=== PATIENT | male | born 1965 | race Caucasian/White ===

== ENCOUNTER → 2018-01-16 15:01 | Outpatient (CLI) | payer MEDICAID, SELFPAY ==
[2018-01-16 17:35] LABS: Absolute Lymphocyte Count 1.66 X10^3/ul (0.83-4.51); Absolute Neutrophil Count 3.2 X10^3/uL (2.0-7.7); Basophil# 0.01 X10^3/uL; Basophil% 0.2 % (0-1); Eosinophil# 0.01 X10^3/uL; Eosinophils% 0.2 % (0-5); Hematocrit 42.1 % (40-54); Hemoglobin 14.9 g/dl (13.0-16.5); Lymphocyte # 1.66 X10^3/ul (4.0); Lymphocyte % 31.6 % (19-41); Mean Corp Hgb Conc 35.4 g/gl (32-36); Mean Corpuscular Hgb 32.5 pg (27.0-32.0); Mean Corpuscular Volume 91.7 fL (80-94); Monocyte% 7.6 % (0-10); Neutrophil # 3.16 X10^3/uL (2.7-7.7); Neutrophil % 60.2 % (47-70); Platelet Count 141 K/mm3 (150-450); RBC Distribution Width CV 12.8 % (11.6-14.6); RBC Distribution Width SD 42.4 fl (35.1-43.9); Red Blood Count 4.59 M/mm3 (4.6-6.2); White Blood Count 5.3 K/mm3 (4.4-11.0)
[2018-01-16 17:37] LABS: POSITIVE COUNT NO; POSITIVE DIFFERENTIAL NO; POSITIVE MORPHOLOGY NO
[2018-01-16 17:41] LABS: Magnesium 1.8 mg/dL (1.6-2.6); Uric Acid 5.8 mg/dL (3.5-7.2)
[2018-01-16 17:59] LABS: Erythrocyte Sedimentation Rate 14 mm/hr (0-20)
[2018-01-18 15:41] LABS: ANTINUCLEAR ANTIBODIES DIRECT Negative (Negative)
[2018-01-18 16:09] LABS: PROEL- A/G Ratio 1.2 (0.7-1.7); PROEL- Albumin 3.6 g/dL (2.9-4.4); PROEL- Alpha-1 Globulin 0.2 g/dL (0.0-0.4); PROEL- Alpha-2 Globulin 0.9 g/dL (0.4-1.0); PROEL- Beta Globulin 0.9 g/dL (0.7-1.3); PROEL- Gamma Globulin 0.9 g/dL (0.4-1.8); PROEL- TOTAL PROTEIN 6.6 g/dL (6.0-8.5)
== END ==
PROVIDERS: Family Provider Family Medicine; PCP Family Medicine; Visit Provider Family Medicine
DX: M06.4 Inflammatory polyarthropathy (principal); M77.8 Other enthesopathies, not elsewhere classified
CPT/HCPCS: 36415; 83735; 84165; 84550; 85025; 85652; 86038; 86140; 86431; 97166

== ENCOUNTER 2018-01-31 09:30 | Outpatient (RCR) | payer MEDICAID, SELFPAY ==
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
--- NOTE | 2018-01-31 10:02 | HP.OTDCSUM ---
HP - OT D/C Summary It has been my pleasure to treat ARRON LARSEN under orders from Chelsea Ma DO, for the diagnosis of right dorsum wrist/ext tendonisis ulnar side for a total of 5 visit(s). Please see the following information for a summary of their discharge status. - Overall Improvement % Improvement: 80 - Objective Objective/Function: pt demo with 55# right automotive refinisher strength - Goals Patient Goals: Regain Strength, Decrease Pain, Decrease Swelling/Stiffness, Use Hand/Wrist/Arm Normally Again Goal:: pt will demo a increase in right automotive refinisher strength to 50# or greater to increase pts ind.with meal prep and other BADls and IADSL by d/c Goal:: pt will reort no pain greater than 2/10 with use of right UE/hand for BADLS and IADLS by d/c Goal:: pt will demo understanding of joint protction and use of ad. eq pt protect joints and decrease pain with BADls and IADLS by d/c - Plan Plan: Wearing wrist brace he purchased since last visit, has decreased pain - D/C Information Discharge Comments: PT WAS SEEN IN OT FOR 5 SESSIONS TO ED. PT ON JOINT PROTECTION AND WORK MODIFICATION TO DECREASE STRESS ON PTS JOINTS- PT DEMO UNDERSTANDING AND IS USING A WRIST BRACE FOR WORK TASKS AND STATES THIS IS HELPFUL-PT DEMO UNDERSTANDING OF AD. EQ. TO IINCREASE HIS IND. WITH BADLS AND IADLS. PT HAS MET FUNCITONAL GOALS IN OT AND IS D/C WITH [facility] If there are questions or concerns regarding this patient's occupational therapy, please fell free to call me at [phone]. Thank you for the referral of this patient. Sincerely, Marcela Gallagher, OTR/L, CHT
== END 2018-01-31 10:42 | disposition home or self-care (01) ==
LOC: OT 09:30
PROVIDERS: Family Provider Family Medicine; PCP Family Medicine; Visit Provider Orthopaedic Surgery
DX: M77.8 Other enthesopathies, not elsewhere classified (principal)
CPT/HCPCS: 97035; 97140; 97166

== ENCOUNTER 2018-02-06 09:28 | Outpatient (RCR) | payer MEDICAID, SELFPAY ==
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
--- NOTE | 2018-05-28 13:43 | HP.PTDCNRP_ITS ---
HP - Discharge Summary (1) - Patient Information ARRON LARSEN was seen in my office for initial evaluation on 02/06/18. The following Plan of Care was established for this patient: Initial Frequency: 2-3x /Week Initial Duration: 4-6 Weeks - Anticipated Interventions Patient/Client Instruction: Educate patient on: Condition, Plan of Care, Risk Factors, Benefits of Fitness Program For the Purpose of:: To improve self management Therapeutic Exercise to Include: Strength training, Body mechanics, Postural training, Flexibilty training, Scapular Strength/Stabilization For the Purpose of:: To improve ability of physical actions for home/community/ work/leisure Manual Therapy Techniques to Include: Soft tissue mobilization For the Purpose of:: To decrease pain, To decrease swelling/inflammation, To increase ROM Ultrasound (thermal/non thermal): Yes For the Purpose of:: To decrease pain, To decrease swelling/inflammation, To increase ROM This patient was last seen in our office 02/06/18. Pertinent comments regarding their Physical therapy will appear below: This patient has not returned to Physical Therapy and is appropriate to return to MD for further follow-up as needed. At this point I will be discontinuing this patient from physical therapy. I would be happy to see this patient again in the future if found appropriate by the physician. Thank you! Amira Mehta
== END 2018-02-06 19:00 | disposition home or self-care (01) ==
LOC: PT 09:28
PROVIDERS: Family Provider Family Medicine; PCP Family Medicine; Visit Provider Orthopaedic Surgery
DX: M54.2 Cervicalgia (principal)
CPT/HCPCS: 97162; 97530

== ENCOUNTER → 2018-08-20 08:26 | Outpatient (CLI) | payer MEDICAID, SELFPAY ==
--- NOTE | 2018-08-20 08:29 | RAD_ITS ---
STUDY: X-RAY - RIGHT HAND REASON FOR EXAM: Arthritis, hand pain TECHNIQUE: 3 view(s) of the hand. COMPARISON: Radiographs 09/28/2015. FINDINGS: Normal radiocarpal articulation. Normal distal radioulnar joint. Normal visualized carpal bones. Normal carpal articulations Normal carpometacarpal articulation of the thumb. Normal second through fifth carpometacarpal joints. Normal metacarpi. Normal metacarpophalangeal joint of the thumb. Normal interphalangeal joint of the thumb. Normal proximal and distal phalanges of the thumb. There is moderate joint space narrowing of the second metacarpophalangeal joint, similar to the prior study. There is flexion deformity at the fifth proximal interphalangeal joint as on the prior study. Normal phalanges of the second through fifth fingers. There is a small ossicle at the distal aspect of the ulnar styloid process. RAD/Hand Min 3 Views IMPRESSION: Arthrosis of the second metacarpophalangeal joint. Flexion deformity of the fifth proximal interphalangeal joint. Electronically Signed: Tone Baker MD at 12:22 EDT Tel , Service support ,
== END ==
PROVIDERS: Family Provider Family Medicine; PCP Family Medicine; Referring Provider Orthopaedic Surgery; Visit Provider Orthopaedic Surgery
DX: M19.041 Primary osteoarthritis, right hand (principal); M21.241 Flexion deformity, right finger joints
CPT/HCPCS: 73130

== ENCOUNTER → 2019-01-07 12:23 | Outpatient (CLI) | payer MEDICAID, SELFPAY ==
[2019-01-07 14:23] LABS: ALB/GLOB Ratio 0.9 RATIO (0.9-2.4); AST(SGOT) 23 U/L (15-37); Alanine Aminotransfer ALT/SGPT 25 U/L (16-61); Albumin, Serum 3.5 g/dL (3.2-5.0); Alkaline Phosphatase 72 U/L (45-117); Anion Gap 5 (5-15); BUN 16 mg/dL (7-18); BUN/Creat Ratio 15.8 RATIO (10-20); Calcium,Total 8.5 mg/dL (8.5-10.1); Chloride 109 mmol/L (98-107); Cholesterol 151 mg/dL (200); Creatinine, Serum 1.01 mg/dL (0.70-1.30); EST Glomerular Filtration Rate 83 mL/min (>60); Est Glom Filt Rate - Afr Amer 100 mL/min (>60); Globulin 3.7 g/dL (2.2-4.2); Glucose 122 mg/dL (74-106); High Density Lipoprotein 52 mg/dL; Potassium 4.5 mmol/L (3.5-5.1); Protein, Total 7.2 g/dL (6.4-8.2); Sodium Level 139 mmol/L (136-145); Thyroid Stim Hormone (TSH) 0.54 uIU/mL (0.358-3.74); Triglycerides 76 mg/dL; Very Low Density Lipoprotein 15 mg/dL (5-40)
[2019-01-07 14:29] LABS: Vitamin D,25 Hydroxy 22.4 ng/mL (29.95-100.01)
[2019-01-07 15:20] LABS: OXY Internal Control LINE = VALID (VALID); Oxycodone Drug Screen Negative (<100 ng/mL)
== END ==
LOC: MFPLAB 12:26 → LABSPEC 14:28
PROVIDERS: Family Provider Family Medicine; PCP Family Medicine; Referring Provider Family Medicine; Visit Provider Family Medicine
DX: E11.22 Type 2 diabetes mellitus with diabetic chronic kidney disease (principal); N18.2 Chronic kidney disease, stage 2 (mild); G89.4 Chronic pain syndrome
CPT/HCPCS: 36415; 80053; 80061; 80365; 82306; 84443; G0480

== ENCOUNTER → 2019-05-21 11:09 | Outpatient (CLI) | payer MEDICAID, SELFPAY ==
[2019-05-21 11:12] LABS: Mucous, Urine 0 SEEN /hpf (<or=2+)
[2019-05-21 12:36] LABS: Color, Urine Yellow (Yellow); Glucose, Dipstick Normal (Normal); Ketone-Dipstick 5 mg/dl (Negative); Leukocyte Esterase-Dipstick 100 /ul (Negative); Nitrite-Dipstick Negative (Negative); Occult Blood-Urine Negative /ul (Negative); Protein-Dipstick 100 mg/dl (Negative); Urine Clarity Sl. Cloudy (Clear); Urine Urobilinogen 1 mg/dl (Normal)
[2019-05-21 12:37] LABS: Urine Bilirubin Dipstick 1 mg/dL (Negative)
[2019-05-21 12:45] LABS: Bacteria 1+ /hpf (None Seen); Red Blood Cells-Urine 0-5 SEEN /hpf (0-5); Squamous Epithelial Cells - UA 10-25 SEEN /hpf (0-5); White Blood Cells 10-25 SEEN /hpf (0-5)
== END ==
PROVIDERS: Family Provider Family Medicine; PCP Family Medicine; Referring Provider Family Medicine; Visit Provider Family Medicine
DX: Z20.2 Contact with and (suspected) exposure to infections with a predominantly sexual mode of transmission (principal)
CPT/HCPCS: 81001

== ENCOUNTER → 2019-06-03 15:36 | Outpatient (CLI) | payer MEDICAID, SELFPAY ==
[2019-06-03 19:28] LABS: Chlamydia Trachomatis by PCR Negative (Negative); Neisserai gonorrhoeae by PCR Negative (Negative); Probe Check PASS; Sample Adequacy Control PASS; Specimen Processing Control PASS
== END ==
PROVIDERS: Family Provider Family Medicine; PCP Family Medicine; Referring Provider Family Medicine; Visit Provider Family Medicine
DX: Z20.2 Contact with and (suspected) exposure to infections with a predominantly sexual mode of transmission (principal)
CPT/HCPCS: 87491; 87591

== ENCOUNTER → 2019-07-09 11:31 | Outpatient (CLI) | payer MEDICAID, SELFPAY ==
[2019-07-09 14:24] LABS: ALB/GLOB Ratio 0.8 RATIO (0.9-2.4); AST(SGOT) 15 U/L (15-37); Alanine Aminotransfer ALT/SGPT 19 U/L (16-61); Albumin, Serum 3.4 g/dL (3.2-5.0); Alkaline Phosphatase 73 U/L (45-117); Anion Gap 9 (5-15); BUN 10 mg/dL (7-18); BUN/Creat Ratio 10.5 RATIO (10-20); Calcium,Total 9.1 mg/dL (8.5-10.1); Chloride 107 mmol/L (98-107); Creatinine, Serum 0.95 mg/dL (0.70-1.30); EST Glomerular Filtration Rate 88 mL/min (>60); Est Glom Filt Rate - Afr Amer 107 mL/min (>60); Globulin 4.1 g/dL (2.2-4.2); Glucose 149 mg/dL (74-106); Potassium 4.2 mmol/L (3.5-5.1); Protein, Total 7.5 g/dL (6.4-8.2); Sodium Level 140 mmol/L (136-145)
[2019-07-09 14:56] LABS: Vitamin D,25 Hydroxy 14.1 ng/mL (29.95-100.01)
== END ==
PROVIDERS: Family Provider Family Medicine; PCP Family Medicine; Referring Provider Family Medicine; Visit Provider Family Medicine
DX: E11.22 Type 2 diabetes mellitus with diabetic chronic kidney disease (principal); N18.2 Chronic kidney disease, stage 2 (mild)
CPT/HCPCS: 36415; 80053; 82306

== ENCOUNTER → 2020-01-14 11:41 | Outpatient (CLI) | payer MEDICAID, SELFPAY ==
[2019-10-14 10:24] VITALS: BMI 39.1
[2020-01-14 14:05] LABS: Absolute Lymphocyte Count 1.96 X10^3/uL (0.83-4.51); Absolute Neutrophil Count 3.6 X10^3/uL (2.0-7.7); Basophil# 0.03 X10^3/uL; Basophil% 0.5 % (0-1); Eosinophil# 0.08 X10^3/uL; Eosinophils% 1.3 % (0-5); Hematocrit 45.9 % (40-54); Hemoglobin 15.4 g/dL (13.0-16.5); Lymphocyte # 1.96 X10^3/ul (4.0); Lymphocyte % 32.1 % (19-41); Mean Corp Hgb Conc 33.6 g/dL (32-36); Mean Corpuscular Hgb 31.3 pg (27.0-32.0); Mean Corpuscular Volume 93.3 fL (80-94); Mean Platelet Vol. 10.8 fl (6.2-12.0); Monocyte# 0.47 X10^3/uL; Monocyte% 7.7 % (0-10); NRBC Flagged by Analyzer 0 % (0-5); Neutrophil # 3.55 X10^3/uL (2.7-7.7); Neutrophil % 58.1 % (47-70); Platelet Count 210 K/mm3 (150-450); RBC Distribution Width SD 44.6 fl (35.1-43.9); Red Blood Count 4.92 M/mm3 (4.6-6.2); White Blood Count 6.1 K/mm3 (4.4-11.0)
[2020-01-14 14:22] LABS: Vitamin B12 381 pg/mL (211-911)
[2020-01-14 15:13] LABS: ALB/GLOB Ratio 0.8 RATIO (0.9-2.4); AST(SGOT) 21 U/L (15-37); Alanine Aminotransfer ALT/SGPT 28 U/L (16-61); Albumin, Serum 3.4 g/dL (3.2-5.0); Alkaline Phosphatase 77 U/L (45-117); Anion Gap 4 (5-15); BUN 13 mg/dL (7-18); Calcium,Total 9.4 mg/dL (8.5-10.1); Chloride 109 mmol/L (98-107); EST Glomerular Filtration Rate 83 mL/min (>60); Est Glom Filt Rate - Afr Amer 101 mL/min (>60); Ferritin 74 ng/mL (26-388); Glucose 113 mg/dL (74-106); Potassium 4.3 mmol/L (3.5-5.1); Protein, Total 7.4 g/dL (6.4-8.2); Sodium Level 139 mmol/L (136-145); Thyroid Stim Hormone (TSH) 0.61 uIU/mL (0.358-3.74)
== END ==
PROVIDERS: PCP Family Medicine; Referring Provider Family Medicine; Visit Provider Family Medicine
DX: E11.22 Type 2 diabetes mellitus with diabetic chronic kidney disease (principal); E53.8 Deficiency of other specified B group vitamins
CPT/HCPCS: 36415; 80053; 82607; 82728; 82746; 84443; 85025

== ENCOUNTER → 2021-01-14 12:48 | Outpatient (CLI) | payer MEDICAID, SELFPAY ==
[2019-10-14 10:24] VITALS: BMI 39.1
--- NOTE | 2021-01-14 12:51 | RAD_ITS ---
STUDY: X-RAY - PARANASAL SINUSES REASON FOR EXAM: Male, 55 years old. SINUSITIS -- left side sinus pain TECHNIQUE: 3 view(s) of the paranasal sinuses were obtained. COMPARISON: None. FINDINGS: Normal visualized frontal, maxillary, ethmoidal and sphenoid sinuses. Normal visualized facial bones. The soft tissue structures are unremarkable. RAD/Sinuses min 3 Views IMPRESSION: Normal x-rays of the paranasal sinuses. Electronically Signed: Casa Watt MD at 13:36 EST , Service support ,
[2021-01-14 15:25] LABS: Amphetamine Urine VISTA NEGATIVE (<1000 ng/mL); Barbiturate Urine VISTA NEGATIVE (< 200 ng/mL); Benzodiazepine Urine VISTA NEGATIVE (< 200 ng/mL); Cocaine Urine VISTA NEGATIVE (< 300 ng/mL); Ecstacy Urine VISTA NEGATIVE (< 500 ng/mL); Methadone Urine VISTA NEGATIVE (< 300 ng/mL); PCP Urine VISTA NEGATIVE (< 25 ng/mL); THC Urine VISTA POSITIVE (< 50 ng/mL); Vista UDS pH Range 5
[2021-01-14 15:31] LABS: Hematocrit 44.1 % (40-54); Hemoglobin 14.5 g/dL (13.0-16.5); Mean Corp Hgb Conc 32.9 g/dL (32-36); Mean Corpuscular Hgb 30.7 pg (27.0-32.0); Mean Corpuscular Volume 93.2 fL (80-94); Platelet Count 211 K/mm3 (150-450); RBC Distribution Width CV 12.9 % (11.6-14.6); RBC Distribution Width SD 44.4 fl (35.1-43.9); Red Blood Count 4.73 M/mm3 (4.6-6.2); White Blood Count 5.1 K/mm3 (4.4-11.0)
[2021-01-14 15:52] LABS: ALB/GLOB Ratio 0.8 RATIO (0.9-2.4); AST(SGOT) 17 U/L (15-37); Alanine Aminotransfer ALT/SGPT 20 U/L (16-61); Alkaline Phosphatase 81 U/L (45-117); Anion Gap 5 (5-15); BUN 15 mg/dL (7-18); BUN/Creat Ratio 14.6 RATIO (10-20); Calcium,Total 8.8 mg/dL (8.5-10.1); Chloride 106 mmol/L (98-107); Creatinine, Serum 1.03 mg/dL (0.70-1.30); EST Glomerular Filtration Rate 80 mL/min (>60); Est Glom Filt Rate - Afr Amer 97 mL/min (>60); Glucose 132 mg/dL (74-106); Potassium 4.2 mmol/L (3.5-5.1); Sodium Level 138 mmol/L (136-145); Thyroid Stim Hormone (TSH) 0.68 uIU/mL (0.358-3.74)
== END ==
PROVIDERS: PCP Family Medicine; Referring Provider Family Medicine; Visit Provider Family Medicine
DX: M06.4 Inflammatory polyarthropathy (principal); G89.4 Chronic pain syndrome; J32.9 Chronic sinusitis, unspecified
CPT/HCPCS: 36415; 70220; 80053; 80307; 84443; 85027

== ENCOUNTER → 2021-01-28 06:39 | Outpatient (CLI) | payer MEDICAID, SELFPAY ==
[2019-10-14 10:24] VITALS: BMI 39.1
--- NOTE | 2021-01-28 06:47 | MRI_ITS ---
STUDY: MRI LUMBAR SPINE WITHOUT CONTRAST REASON FOR EXAM: Male, 55 years old. DDD, low back pain, leg weakness R and gt;L, frequent falls TECHNIQUE: Standardized fat and water weighted pulse sequences were obtained in the sagittal and axial planes. COMPARISON: CT abdomen and pelvis with contrast 03/08/2016. FINDINGS: T11-T12: (Sagittal only). Normal T11 inferior endplate. Mild anterior wedging of T12 superior endplate is presumably from remote injury and unchanged. Normal disc height, hydration and morphology. Normal central canal and bilateral intervertebral neural foramina. T12-L1: (Sagittal only). Mild anterior wedging of the vertebral endplates are presumably from remote injury. They are unchanged. Mild disc space height narrowing. Normal disc hydration. No ventral extradural defect. Normal central canal and bilateral intervertebral neural foramina. Normal lumbar lordosis. There is no substantial scoliosis. Normal conus medullaris that terminates at the T12-L1 disc level. L1-2: Anterior disc protrusion. MODIC type II degenerative vertebral marrow fatty changes underneath the vertebral endplates. Schmorl''s node in the posterior aspect of the vertebral endplates. Pronounced posterior disc space height narrowing. Small posterior bulging disc. Mild flattening central canal stenosis with an AP canal diameter of 9 mm. Normal bilateral lateral recesses. Mild asymmetric degenerative facet arthropathy. Normal bilateral intervertebral neural foramina. Left renal cyst is visible at this level. L2-3: Normal endplates. Normal disc height and morphology. No ventral extradural defect. Mild central canal stenosis with an AP canal diameter 10 mm. Mild dorsal epidural lipomatosis. Normal bilateral lateral recesses. Mild to moderate right degenerative facet arthropathy and mild left degenerative facet arthropathy. Normal bilateral intervertebral neural foramina. L3-4: Normal endplates. Mild disc space height narrowing. Prominent posterior annular bulging disc. Severe central canal stenosis with an AP canal diameter of 4.7 mm. Normal bilateral lateral recesses. Moderate bilateral degenerative facet hypertrophy. Normal bilateral intervertebral neural foramina. L4-5: MODIC type II degenerative vertebral marrow fatty changes underneath the vertebral endplates. Pronounced disc space height narrowing. Postsurgical absence of the right L4 lamina with posterior bulging of the thecal sac. Normal central canal and bilateral lateral recesses. Moderate left degenerative facet arthropathy and mild right degenerative facet arthropathy. Moderate stenosis of the left intervertebral neural foramen. Normal right intervertebral neural foramen. L5-S1: MODIC type II degenerative vertebral marrow fatty changes underneath the right side of the vertebral endplates. Moderately pronounced disc space height narrowing. Right L5 hemilaminotomy defect with mild posterior bulging of the thecal sac. Small right ventral extradural defect without deformity of the thecal sac may represent postoperative fibrosis. MRI with intravenous contrast will help confirm/clarify. Moderately pronounced right degenerative facet arthropathy. Moderate left degenerative facet arthropathy. Moderate stenosis of the right intervertebral neural foramen. Normal left intervertebral neural foramen. Normal visualized sacral ala. Normal visualized paraspinous soft tissue structures. MRI/Spine Lumbar (Routine) IMPRESSION: 1. Severe central canal stenosis at L3-L4 disc level with an AP canal diameter of 4.7 mm. 2. Mild flattening central canal stenosis at L1-L2 disc level with an AP canal diameter of 9 mm and small posterior bulging disc. 3. Mild central canal stenosis at L2-L3 disc level with an AP canal diameter 10 mm. 4. Moderate stenosis of the left L4-L5 intervertebral neural foramen with pronounced disc space height narrowing and moderate left L4-L5 degenerative facet arthropathy. There is, however, right L4 hemilaminectomy defect with posterior bulging of the thecal sac. 5. Small right ventral extradural defect at L5-S1 disc level without deformity of the thecal sac due to presence of ventral epidural fat. This is presumably postoperative fibrosis. Contrast MRI of the lumbar spine will help clarify if recurrent extruded disc fragment is a clinical consideration. 6. No definite MRI evidence of lumbar extruded disc fragment. 7. Progression of degenerative facet arthropathy is the only change when compared to CT of the abdomen and pelvis of 03/08/2016. Electronically Signed: Barrett Rogers MD at 9:19 EST , Service support ,
== END ==
PROVIDERS: PCP Family Medicine; Referring Provider Family Medicine; Visit Provider Family Medicine
DX: R29.898 Other symptoms and signs involving the musculoskeletal system (principal); M47.816 Spondylosis without myelopathy or radiculopathy, lumbar region
CPT/HCPCS: 72148

== ENCOUNTER → 2021-07-14 11:49 | Outpatient (CLI) | payer MEDICAID, SELFPAY ==
[2021-07-14 15:08] LABS: Hematocrit 41.3 % (40-54); Hemoglobin 13.7 g/dL (13.0-16.5); Mean Corp Hgb Conc 33.2 g/dL (32-36); Mean Corpuscular Hgb 30.4 pg (27.0-32.0); Mean Corpuscular Volume 91.8 fL (80-94); Mean Platelet Vol. 11.7 fl (6.2-12.0); Platelet Count 191 K/mm3 (150-450); RBC Distribution Width SD 43.7 fl (35.1-43.9)
[2021-07-14 15:25] LABS: ALB/GLOB Ratio 0.8 RATIO (0.9-2.4); AST(SGOT) 17 U/L (15-37); Alanine Aminotransfer ALT/SGPT 23 U/L (16-61); Albumin, Serum 3.1 g/dL (3.2-5.0); Alkaline Phosphatase 73 U/L (45-117); Anion Gap 5 (5-15); BUN 17 mg/dL (7-18); BUN/Creat Ratio 18.9 RATIO (10-20); Calcium,Total 8.8 mg/dL (8.5-10.1); Chloride 107 mmol/L (98-107); Cholesterol 150 mg/dL (200); EST Glomerular Filtration Rate 93 mL/min (>60); Est Glom Filt Rate - Afr Amer 113 mL/min (>60); Glucose 150 mg/dL (74-106); High Density Lipoprotein 46 mg/dL; Potassium 4.4 mmol/L (3.5-5.1); Protein, Total 7.1 g/dL (6.4-8.2); Sodium Level 137 mmol/L (136-145); Triglycerides 127 mg/dL; Very Low Density Lipoprotein 25 mg/dL (5-40)
[2021-07-14 15:29] LABS: Hemoglobin A1c 7.4 % (3.8-5.6)
[2021-07-14 15:59] LABS: Microalbumin:Creatinine Ratio 2307.7 mg/g CRE (<30 mg/g CRE)
== END ==
PROVIDERS: PCP Family Medicine; Referring Provider Family Medicine; Visit Provider Family Medicine
DX: M67.912 Unspecified disorder of synovium and tendon, left shoulder (principal); E11.22 Type 2 diabetes mellitus with diabetic chronic kidney disease; N18.9 Chronic kidney disease, unspecified
CPT/HCPCS: 36415; 80053; 80061; 82043; 82570; 83036; 85027

== ENCOUNTER → 2021-08-03 11:01 | Outpatient (CLI) | payer MEDICAID, SELFPAY ==
[2021-08-03 13:39] LABS: Protein:Creat Ratio 2398 mg/g CRE (0-200)
[2021-08-04 21:08] LABS: ANTINUCLEAR ANTIBODIES DIRECT Negative (Negative)
[2021-08-06 03:08] LABS: HEPATITIS B SURFACE AG Negative (Negative); Hepatitis A IgM Antibody Negative (Negative); Hepatitis B Core AB IgM Negative (Negative); PROEL- A/G Ratio 1.1 (0.7-1.7); PROEL- Albumin 3.2 g/dL (2.9-4.4); PROEL- Alpha-1 Globulin 0.2 g/dL (0.0-0.4); PROEL- Alpha-2 Globulin 0.8 g/dL (0.4-1.0); PROEL- Beta Globulin 0.9 g/dL (0.7-1.3); PROEL- Gamma Globulin 0.8 g/dL (0.4-1.8); PROEL- Globulin, Total 2.8 g/dL (2.2-3.9); PROELU- Albumin, Urine 82.2 % (.); PROELU- Alpha-1-Globulin,Ur 0.9 % (.); PROELU- Alpha-2-Globulin,Ur 4.2 % (.); PROELU- Beta Globulin, Ur 8.9 % (.); PROELU- Gamma Globulin, Ur 3.8 % (.)
[2021-08-08 11:49] LABS: Hep C Antibodies <0.1 s/co ratio (0.0-0.9); Total Protein, Ur 660.5 mg/dL (Not Estab.)
== END ==
LOC: LABSPEC 11:02 → LAB 11:03
PROVIDERS: PCP Family Medicine; Visit Provider Internal Medicine Nephrology
DX: R80.9 Proteinuria, unspecified (principal)
CPT/HCPCS: 36415; 80074; 82570; 84156; 84165; 84166; 86038

== ENCOUNTER → 2021-08-08 15:23 | Outpatient (CLI) | payer MEDICAID, SELFPAY ==
--- NOTE | 2021-08-08 15:25 | US_ITS ---
STUDY: RENAL ULTRASOUND - COMPLETE REASON FOR EXAM: Male, 56 years old. Chronic kidney disease. TECHNIQUE: Ultrasound evaluation of the kidneys was performed with real-time and static cedillo-scale imaging. COMPARISON: Abdominal ultrasound, 03/08/2016. FINDINGS: RIGHT KIDNEY: Normal location of the right kidney, which is normal in size. The right kidney measures 12.6 cm. There is a normal cortex of the right kidney. The renal cortex measures 1.7 cm. There is no right renal mass or cyst. There are no right renal calculi. There is no right hydronephrosis. DISTAL RIGHT URETER: There is non-visualization of the distal right ureter. There is no demonstrated right ureterovesical junction calculus. There is a visualized right ureteral jet. LEFT KIDNEY: Normal location of the left kidney, which is enlarged in size. The left kidney measures 13.2 cm. There is a normal cortex of the left kidney. The renal cortex measures 1.8 cm. There is a 4.2 x 4.7 x 4.3 cm simple parapelvic renal cyst centrally in the left kidney. There is also a 1.1 x 1.0 x 0.8 cm simple cyst in the lower pole cortex. There are no left renal calculi. There is no left hydronephrosis. DISTAL LEFT URETER: There is non-visualization of the distal left ureter. There is no demonstrated left ureterovesical junction calculus. There is a visualized left ureteral jet. BLADDER: The distended urinary bladder has a volume of 3:15 ml. There is a normal wall thickness of the distended urinary bladder. There is no demonstrated mass within the urinary bladder. There are no demonstrated bladder calculi. US/Kidney and Bladder IMPRESSION: 1. Renal cysts. These appear simple and do not require follow-up. 2. Normal right kidney. 3. Normal urinary bladder. Electronically Signed: Sonny Pompa DO at 16:17 EDT Tel [phone], Service support ,
== END ==
PROVIDERS: PCP Family Medicine; Visit Provider Internal Medicine Nephrology
DX: N18.2 Chronic kidney disease, stage 2 (mild) (principal)
CPT/HCPCS: 76770

== ENCOUNTER → 2021-09-08 14:31 | Outpatient (CLI) | payer MEDICAID, SELFPAY ==
[2021-09-08 16:29] LABS: Albumin, Serum 3.1 g/dL (3.2-5.0); BUN 15 mg/dL (7-18); BUN/Creat Ratio 14.9 RATIO (10-20); Calcium,Total 8.9 mg/dL (8.5-10.1); Chloride 107 mmol/L (98-107); Creatinine, Serum 1.01 mg/dL (0.70-1.30); EST Glomerular Filtration Rate 82 mL/min (>60); Est Glom Filt Rate - Afr Amer 99 mL/min (>60); Glucose 90 mg/dL (74-106); Phosphorus 3.1 mg/dL (2.5-4.9); Potassium 4.2 mmol/L (3.5-5.1); Sodium Level 141 mmol/L (136-145)
[2021-09-08 17:48] LABS: Protein, Urine (Random) 1008.7 mg/dL (<11.9); Protein:Creat Ratio 3668 mg/g CRE (0-200)
== END ==
PROVIDERS: PCP Family Medicine; Visit Provider Internal Medicine Nephrology
DX: N18.2 Chronic kidney disease, stage 2 (mild) (principal); R80.9 Proteinuria, unspecified
CPT/HCPCS: 36415; 80069; 82570; 84156

== ENCOUNTER 2022-01-23 14:58 | Outpatient (CLI) | payer MEDICAID, SELFPAY ==
[2022-01-23 18:08] LABS: Absolute Lymphocyte Count 1.97 X10^3/uL (0.83-4.51); Basophil# 0.05 X10^3/uL; Basophil% 0.7 % (0-1); Eosinophil# 0.06 X10^3/uL; Eosinophils% 0.9 % (0-5); Hematocrit 42.1 % (40-54); Hemoglobin 14.4 g/dL (13.0-16.5); Lymphocyte # 1.97 X10^3/ul (0.83-4.51); Lymphocyte % 29.4 % (19-41); Mean Corp Hgb Conc 34.2 g/dL (32-36); Mean Corpuscular Hgb 31.2 pg (27.0-32.0); Mean Corpuscular Volume 91.1 fL (80-94); Mean Platelet Vol. 11.3 fl (6.2-12.0); Monocyte# 0.58 X10^3/uL; Monocyte% 8.7 % (0-10); NRBC Flagged by Analyzer 0 % (0-5); Neutrophil # 4.02 X10^3/uL (2.7-7.7); Platelet Count 213 K/mm3 (150-450); RBC Distribution Width SD 43.4 fl (35.1-43.9); Red Blood Count 4.62 M/mm3 (4.6-6.2); White Blood Count 6.7 K/mm3 (4.4-11.0)
[2022-01-23 19:05] LABS: ALB/GLOB Ratio 0.7 RATIO (0.9-2.4); AST(SGOT) 17 U/L (15-37); Alanine Aminotransfer ALT/SGPT 18 U/L (16-61); Albumin, Serum 2.7 g/dL (3.2-5.0); Alkaline Phosphatase 89 U/L (45-117); Anion Gap 5 (5-15); BUN 12 mg/dL (7-18); BUN/Creat Ratio 13.1 RATIO (10-20); Chloride 105 mmol/L (98-107); Cholesterol 150 mg/dL (200); Creatinine, Serum 0.92 mg/dL (0.70-1.30); EST Glomerular Filtration Rate 91 mL/min (>60); Est Glom Filt Rate - Afr Amer 111 mL/min (>60); Globulin 3.8 g/dL (2.2-4.2); Glucose 93 mg/dL (74-106); High Density Lipoprotein 52 mg/dL; Potassium 4.1 mmol/L (3.5-5.1); Protein, Total 6.5 g/dL (6.4-8.2); Sodium Level 137 mmol/L (136-145); Thyroid Stim Hormone (TSH) 1.65 uIU/mL (0.358-3.74); Triglycerides 91 mg/dL; Very Low Density Lipoprotein 18 mg/dL (5-40)
[2022-01-23 19:06] LABS: Microalbumin:Creatinine Ratio 3674.8 mg/g CRE (<30 mg/g CRE)
== END 2022-01-23 23:59 | disposition home or self-care (01) ==
LOC: MTLAB 14:59
PROVIDERS: PCP Family Medicine; Referring Provider Family Medicine; Visit Provider Family Medicine
DX: E11.22 Type 2 diabetes mellitus with diabetic chronic kidney disease (principal)
CPT/HCPCS: 36415; 80053; 80061; 82043; 82570; 84443; 85025

== ENCOUNTER 2022-03-10 06:17 | Day surgery (SDC) | payer MEDICAID, SELFPAY ==
--- NOTE | 2022-03-10 | COLBX_PTH ---
PATIENT: ARRON LARSEN LOC: EN U#:[id number] AGE/SX: 56/M ROOM: RE03/10/[address]: Dr. José Serrato MD : 1965 BED: DIS: 03/10/2022 SPEC #: [id number] RECD: 03/10/22 12:49 STATUS: DAMEON CHO #: [id number] JAIME: 03/10/22 00:[address]: José Serrato DEPT: SURGICAL PATHOLOGY RECD BY: Mauricio Gregory ENTERED: 03/10/22 12:52 SP TYPE: COLON BX OTHR DR: Dr. Regino Alexander MD Tissues: A - Cecum, NOS B - Ascending colon C - Descending colon D - Anus, NOS Procedures: Surgery Specimen Level IV HEADER OPERATION: Colonoscopy (MAC), polypectomy, biopsy PRE-OP DIAGNOSIS: Screen for colon cancer TISSUE SUBMITTED: A ? Cecal polyps, B ? Ascending colon polyp, C ? Descending colon polyp, D ? Anus biopsy MICROSCOPIC DIAGNOSIS A. Cecal polyps, biopsy: Fragments of tubular adenoma. B. Ascending colon polyp, biopsy: Fragments of tubular adenoma. C. Descending colon polyp, biopsy: Fragments of tubular adenoma with focal high-grade dysplasia. Fragments of fecal material. See comment. D. Anus, biopsy: Well-differentiated invasive adenocarcinoma. See comment. SJ:rg 03/13/2022 COMMENT C. Intramucosal carcinoma or higher grade lesion cannot be entirely ruled out. D. Immunohistochemistry ([id number]) for microsatellite instability (mismatch repair of protein) will be performed and the results will be reported separately. Correlation with clinical, endoscopic findings and appropriate follow up are necessary. MICROSCOPIC DESCRIPTION Slides are reviewed. GROSS DESCRIPTION A - Received in fixative is one container labeled with the patient's name and designated cecal polyps. The specimen consists of multiple irregular fragments of light reyes soft tissue that in aggregate measure 2 x 0.6 x 0.4 cm. The specimen is totally submitted in one cassette. B - Received in fixative is one container labeled with the patient's name and designated ascending colon polyp. The specimen consists of multiple irregular fragments of light reyes soft tissue mixed with fecal material that in aggregate measure 1.5 x 0.2 x 0.1 cm. The specimen is totally submitted in one cassette. C - Received in fixative is one container labeled with the patient's name and designated descending colon polyp. The specimen consists of multiple irregular fragments of light reyes soft tissue mixed with fecal material that in aggregate measure 2 x 0.5 x 0.2 cm. The specimen is totally submitted in one cassette. D - Received in fixative is one container labeled with the patient's name and designated anus biopsy. The specimen consists of multiple fragments of reyes hemorrhagic soft tissue that in aggregate measure 1 x 0.5 x 0.1 cm. The specimen is totally submitted in one cassette. / SJ:rg 03/10/2022 TC:0 CPT: 16439 x4
--- NOTE | 2022-03-10 | IMM_PTH ---
PATIENT: ARRON LARSEN LOC: EN U#:[id number] AGE/SX: 56/M ROOM: RE03/10/[address]: Dr. José Serrato MD : 1965 BED: DIS: 03/10/2022 SPEC #: [id number] RECD: 03/13/22 12:15 STATUS: DAMEON REQ #: [id number] JAIME: 03/10/22 00:[address]: José Serrato DEPT: IMMUNOHISTOCHEMISTRY RECD BY: Amanda Cheema ENTERED: 03/13/22 12:17 SP TYPE: IMMUNO OTHR DR: Dr. Regino Alexander MD Tissues: D - Anus, NOS Procedures: MSH2 (add) MLH-1 (add) MSH6 (add) Anti-PMS2 (add) SHEPHERD-2 (add) KI-67 (add) P53 (add) HER-2-RICHARD (initial) PHYSICIAN [facility] INSTIT[facility] [address] [address] SPECIMEN INFORMATION: Tissue Source: D ? Anus biopsy Clinical Info: Screening Specimen Number: [id number] D [facility] code: [id number], [id number] x7 METHODOLOGY: Deparaffinized sections of prefer/formalin-fixed tissue or PAP/DQ stained slides are incubated with monoclonal/polyclonal antibodies/oligonucleotide probes. Localization is made via biotin free immunoperoxidase method. Appropriate controls are performed and reacted as expected. Results on target cell population are indicated in the following table: RESULTS: ANTIBODY / CLONE RESULT Block D Her-2neu (CB11) negative (0) SHEPHERD-2 (SP21) positive MLH-1 (M1) positive MSH2 (25D12) positive MSH6 (44) positive PMS2 (CJP4607) positive Ki-67 (30-9) positive, high P53 (DO-7) negative These tests were developed and their performance characteristics determined by [facility]. They may not have been cleared or approved by the U.S. Food and Drug Administration. The FDA has determined that such clearance or approval is not necessary. The above immunohistochemical/dualISH markers are ordered and reviewed by the Pathologist. INTERPRETATION: D. Anus biopsy: Invasive adenocarcinoma. Result of Microsatellite Instability Study: Negative (no loss of mismatch protein; no microsatellite instability detected). SJ:benita 03/14/2022
[2022-03-10 06:48] VITALS: BP 163/79; PULSE 74; RESP 18; TEMP 36.4; O2SAT 96; BMI 38.5
[2022-03-10] MEDS: Lactated Ringers 1,000 ML 15 ML IV (06:53)
--- NOTE | 2022-03-10 07:00 | PCM.HP.BLA ---
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 Is patient in pain?: No Allergies No Known Allergies Allergy (Verified 02/13/22 13:57) Medications metformin 1,000 mg PO BIDCM 01/05/16 [History Confirmed 02/13/22] atorvastatin 40 mg tablet 40 mg PO QDAY 01/15/18 [History Confirmed 02/13/22] ipratropium bromide 21 mcg (0.03 %) nasal spray 42 mcg INTRANASAL BID-TID PRN 01/15/18 [History Confirmed 02/13/22] duloxetine 60 mg capsule,delayed release PO #60 cap 10/14/19 [History Confirmed 02/13/22] pregabalin 150 mg capsule PO #60 cap 10/14/19 [History Confirmed 02/13/22] ascorbic acid (vitamin C) 500 mg capsule mg PO BID cap 02/13/22 [History Confirmed 02/13/22] insulin glargine 100 unit/mL subcutaneous solution 30 unit SUBCUT BID ml 02/13/22 [History Confirmed 02/13/22] insulin lispro 100 unit/mL subcutaneous cartridge 10 unit SUBCUT TID 02/13/22 [History Confirmed 02/13/22] liraglutide 0.6 mg/0.1 mL (18 mg/3 mL) subcutaneous pen injector 1.8 mg SUBCUT DAILY 02/13/22 [History Confirmed 02/13/22] magnesium oxide 400 mg PO DAILY 02/13/22 [History Confirmed 02/13/22] methadone 5 mg tablet 5 mg PO DAILY 02/13/22 [History Confirmed 02/13/22] oxycodone 10 mg tablet 10 mg PO BID PRN 02/13/22 [History Confirmed 02/13/22] pioglitazone 45 mg tablet 45 mg PO DAILY 02/13/22 [History Confirmed 02/13/22] quinapril 10 mg tablet 10 mg PO DAILY 02/13/22 [History Confirmed 02/13/22] tadalafil 20 mg tablet 20 mg PO DAILY PRN 02/13/22 [History Confirmed 02/13/22] [facility] Medical History (Updated 02/13/22 @ 14:[address] José Serrato MD) Ascending colitis Chronic back pain Diabetes HTN (hypertension) Surgical History History of bilateral carpal tunnel release left dequervains right 5th finger tendon retraction S/P hernia repair s/p left ankle surgery S/P lumbar spine operation Family History (Updated 02/13/22 @ 13:56 by Frieda Andrade) Father Heart disease Diabetes Grandfather Diabetes Heart disease Hypertension Grandmother Hypertension Diabetes Social History (Updated 02/13/22 @ 13:56 by Frieda Andrade) Smoking Status: Heavy Smoker (>10/day) alcohol intake: never HPI HPI HPI: ARRON LARSEN, is a 56 M who presents to the office today for colonoscopy and hemorrhoid. Patient reports he has had a hemorrhoid for about 20 years and it just started bothering him recently. It has become irritated and started to bleed as well. Patient reports he is never had a screening colonoscopy. He has a family history of adenomatous polyps. Patient does not note any abdominal pain or weight loss. ROS General General: Yes fatigue; No weight change, appetite, colon cancer, breast cancer or weakness HEENT HEENT: No difficulty swallowing, eye injury, eye surgery, swollen glands or hoarseness Endo Endocrine: Yes diabetes mellitus; No thyroid disease, thyroid cancer, Hair loss, heat intolerance or cold intolerance Skin Skin: No rash or changing moles Breast Breast: No left breast lump, right breast lump, nipple discharge, breast pain, abnormal mammogram, abnormal US or breast enlargement Musc Musculoskeletal: Yes back problems, arthritis and rheumatoid arthritis; No gout or joint pain Cardio Cardiovascular: Yes high blood pressure; No murmur, pacemaker, heart disease, atrial fibrillation, heart attack, heart stent, palpitations, shortness of breat with exertion or chest pain Psych Psychiatric: Yes depression and anxiety; No hearing voices Resp Respiratory: No shortness of breath, No sleep apnea, No cough, No COPD, No asthma, No emphysema and No wheezing Gastro Gastrointestinal: No abdominal pain, No nausea or vomiting, No diarrhea, No constipation, Yes blood in stool, No acid reflux, Yes hemorrhoids, No ulcers, No gallbladder problem and No black,tarry stools James Hematologic: No blood thinners, No blood disorders, No bleeding, No anemia and No blood clots Neuro Neurologic: No system reviewed and no additional complaints, except as documented, No as per HPI, No abnormal gait, No abnormal hearing, No abnormal movements, No abnormal speech, No behavioral changes, No burning sensations, No confusion, No convulsions, No disequilibrium, No dizziness, No localized weakness, No frequent falls, No headache(s), No lack of coordination, No loss of vision, No memory loss, No numbness, No other visual disturbances, No radicular pain, No restless legs, No sensory deficit, No syncope, No tingling, No tremor(s), No weakness and No other Exam Const General: cooperative Orientation: alert and oriented x3 HENMT Head: normal to inspection Neck Neck: normal visual inspection and full ROM Chest Chest palpation & inspection: normal inspection of the chest Resp Effort & Inspection: normal respiratory effort Auscultation: clear to auscultation bilaterally Cardio Rate: regular rate Rhythm: regular rhythm GI Inspection: non-distended Palpation: soft and nontender Skin General: no rashes or lesions noted Neuro General: patient alert and patient oriented x3 Extrem General: full ROM Psych Appearance: grossly normal Mental Status: mental status grossly normal Assessment and Plan Assessment and Plan (1) Screen for colon cancer: Status: Acute Orders: Orders: Colonoscopy Today Plan - Dr. José Serrato MD: The patient has never had screening colonoscopy so I do recommend that he has a screening colonoscopy. During colonoscopy I will evaluate his hemorrhoids and follow-up with him to discuss hemorrhoidectomy. I explained endoscopy in detail to the patient. I explained the risks including but not limited to stroke or heart attack with anesthesia, perforation of the GI tract, bleeding, infection. I explained that any of these could necessitate further emergency surgery. The patient understands and all questions were answered sufficiently. The patient wishes to proceed with procedure. José Serrato MD Pager: [facility] [address] [place] [address] [address] [place] [address] Office: I have seen and reexamined the patient., no changes.
[2022-03-10 07:01] LABS: Bedside Glucose 139 mg/dL (74-106)
[2022-03-10 08:05] VITALS: BP 131/61; BP 163/79; PULSE 78; RESP 16; TEMP 36.3; O2SAT 97
--- NOTE | 2022-03-10 08:07 | OP.COLON_ITS ---
Patient Name: Esdras Marie Procedure Date: 03/10/2022 7:19 AM Date of : 1965 Age: 56 Procedure: Colonoscopy Indications: Hematochezia Providers: José Serrato MD Medicines: Monitored Anesthesia Care Patient Profile: This is a 56 year old male. Refer to note in patient chart for documentation of history and physical. Last Colonoscopy: none. The patient's first colonoscopy is today. Complications: No immediate complications. Estimated blood loss: Minimal. Procedure: Pre-Anesthesia Assessment: - Prior to the procedure, a History and Physical was performed, and patient medications and allergies were reviewed. The patient's tolerance of previous anesthesia was also reviewed. The risks and benefits of the procedure and the sedation options and risks were discussed with the patient. All questions were answered, and informed consent was obtained. Prior Anticoagulants: The patient has taken no previous anticoagulant or antiplatelet agents. After reviewing the risks and benefits, the patient was deemed in satisfactory condition to undergo the procedure. After I obtained informed consent, the scope was passed under direct vision. Throughout the procedure, the patient's blood pressure, pulse, and oxygen saturations were monitored continuously. The pediatric colonoscope was introduced through the anus and advanced to the cecum, identified by appendiceal orifice and ileocecal valve. The colonoscopy was performed without difficulty. The patient tolerated the procedure well. The quality of the bowel preparation was good. Scope In: 7:31:12 AM Scope Withdrawal Time 0 hours 20 minutes 25 seconds Scope Out: 7:57:39 AM Total Procedure Duration Time 0 hours 26 minutes 27 seconds Findings: The digital rectal exam revealed a firm anal mass. The mass was non-circumferential and located predominantly at the right bowel wall. Four polyps were found in the descending colon, ascending colon and cecum. The polyps were small in size. These polyps were removed with a hot snare. Resection and retrieval were complete. Verification of patient identification for the specimen was done. An ulcerated non-obstructing medium-sized mass was found at the anus. The mass was partially circumferential (involving one-third of the lumen circumference). Oozing was present. This was biopsied with a cold forceps for histology. Impression: - Anal mass. - Four small polyps in the descending colon, in the ascending colon and in the cecum, removed with a hot snare. Resected and retrieved. 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 Biopsied. - The examination was suspicious for a malignant-appearing tumor. Biopsied. Recommendation: - Discharge patient to home. - Resume previous diet. - Continue present medications. - Await pathology results. - Repeat colonoscopy after studies are complete for surveillance based on pathology results. - Return to my office in 1 week. Procedure Code(s): --- Professional --- 51634, Colonoscopy, flexible; with removal of tumor(s), polyp(s), or other lesion(s) by snare technique 46094, 59, Colonoscopy, flexible; with biopsy, single or multiple Diagnosis Code(s): --- Professional --- K62.89, Other specified diseases of anus and rectum D12.4, Benign neoplasm of descending colon D12.2, Benign neoplasm of ascending colon D12.0, Benign neoplasm of cecum D49.0, Neoplasm of unspecified behavior of digestive system K92.1, Melena (includes Hematochezia) CPT copyright 2017 [employer]. All rights reserved. The codes documented in this report are preliminary and upon polymer chemist review may be revised to meet current compliance requirements. José Serrato MD 03/10/2022 8:07:20 AM This report has been signed electronically. Number of Addenda: 0 Note Initiated On: 03/10/2022 7:19 AM
--- NOTE | 2022-03-10 08:08 | OP.CCLET_ITS ---
03/10/2022 Regino Alexander [address] [place] [address] Re : Colonoscopy procedure for Esdras Marie Dear Dr. Alexander This procedure was performed on Thursday, March 10, 2022. My impressions and recommendations are as follows: Impressions : - Anal mass. - Four small polyps in the descending colon, in the ascending colon and in the cecum, removed with a hot snare. Resected and retrieved. 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 Biopsied. - The examination was suspicious for a malignant-appearing tumor. Biopsied. Recommendations : - Discharge patient to home. - Resume previous diet. - Continue present medications. - Await pathology results. - Repeat colonoscopy after studies are complete for surveillance based on pathology results. - Return to my office in 1 week. My findings are described in the full procedure note, which is enclosed. If I can be of further assistance, please feel free to contact me at Doctor phone number(s): , Work: . Sincerely, José Serrato MD 03/10/2022 8:07:20 AM This report has been signed electronically.
[2022-03-10 08:10] VITALS: BP 112/59; BP 163/79; PULSE 71; RESP 16; O2SAT 95
[2022-03-10 08:16] VITALS: BP 152/92; BP 163/79; PULSE 72; RESP 16; O2SAT 98
[2022-03-10 08:21] VITALS: BP 160/91; BP 163/79; PULSE 77; RESP 16; TEMP 36.5; O2SAT 99
[2022-03-10 08:34] VITALS: BP 163/79
== END 2022-03-10 08:44 | disposition home or self-care (01) ==
LOC: EN 06:19 → AC 06:19
PROVIDERS: PCP Family Medicine; Referring Provider Family Medicine; Visit Provider Surgery
PROC: 0DJD8ZZ Inspection of Lower Intestinal Tract, Via Natural or Artificial Opening Endoscopic (ICD-10-PCS; CPT 45378; principal; 2022-03-10 07:25)
DX: Z12.11 Encounter for screening for malignant neoplasm of colon (principal); C21.0 Malignant neoplasm of anus, unspecified; E11.9 Type 2 diabetes mellitus without complications; Z79.4 Long term (current) use of insulin; Z79.84 Long term (current) use of oral hypoglycemic drugs; K64.9 Unspecified hemorrhoids; I10 Essential (primary) hypertension; F17.200 Nicotine dependence, unspecified, uncomplicated; G89.29 Other chronic pain; Z87.19 Personal history of other diseases of the digestive system; Z79.899 Other long term (current) drug therapy; F41.9 Anxiety disorder, unspecified; F32.A Depression, unspecified; E78.00 Pure hypercholesterolemia, unspecified; G25.81 Restless legs syndrome; D12.0 Benign neoplasm of cecum; D12.2 Benign neoplasm of ascending colon; D12.4 Benign neoplasm of descending colon
CPT/HCPCS: 45385; 45380; 82962; 87426; 88305; 88341; 88342; J7120

== ENCOUNTER → 2022-04-04 | Outpatient (CLI) | payer MEDICAID, SELFPAY | END | disposition home or self-care (01) | LOC: MRI 12:20 | PROVIDERS: PCP Family Medicine; Referring Provider Internal Medicine Hematology & Oncology; Visit Provider Internal Medicine Hematology & Oncology | DX: Z00.00 Encounter for general adult medical examination without abnormal findings (principal) ==

== ENCOUNTER → 2023-06-15 | Outpatient (CLI) | payer MEDICAID, SELFPAY ==
[2023-06-15 10:02] LABS: Hematocrit 39.4 % (40-54); Hemoglobin 12.7 g/dL (13.0-16.5); Mean Corp Hgb Conc 32.2 g/dL (32-36); Mean Corpuscular Hgb 29.1 pg (27.0-32.0); Mean Corpuscular Volume 90.2 fL (80-94); Mean Platelet Vol. 10.5 fl (6.2-12.0); Platelet Count 224 K/mm3 (150-450); RBC Distribution Width CV 13.2 % (11.6-14.6); RBC Distribution Width SD 43.6 fl (35.1-43.9); Red Blood Count 4.37 M/mm3 (4.6-6.2)
[2023-06-15 11:09] LABS: ALB/GLOB Ratio 0.7 RATIO (0.9-2.4); AST(SGOT) 13 U/L (15-37); Alanine Aminotransfer ALT/SGPT 11 U/L (16-61); Albumin, Serum 2.7 g/dL (3.2-5.0); Alkaline Phosphatase 99 U/L (45-117); Anion Gap 7 (5-15); BUN 19 mg/dL (7-18); BUN/Creat Ratio 18.1 RATIO (10-20); Calcium,Total 8.7 mg/dL (8.5-10.1); Chloride 106 mmol/L (98-107); Cholesterol 107 mg/dL (200); Creatinine, Serum 1.05 mg/dL (0.70-1.30); EST Glomerular Filtration Rate 78 mL/min (>60); Est Glom Filt Rate - Afr Amer 94 mL/min (>60); Globulin 4.1 g/dL (2.2-4.2); Glucose 163 mg/dL (74-106); High Density Lipoprotein 44 mg/dL; Potassium 3.9 mmol/L (3.5-5.1); Protein, Total 6.8 g/dL (6.4-8.2); Sodium Level 138 mmol/L (136-145); Thyroid Stim Hormone (TSH) 0.48 uIU/mL (0.358-3.74); Triglycerides 112 mg/dL; Very Low Density Lipoprotein 22 mg/dL (5-40)
[2023-06-15 11:35] LABS: Microalbumin:Creatinine Ratio 2534.2 mg/g CRE (<30 mg/g CRE)
== END | disposition home or self-care (01) ==
LOC: MFPLAB 08:55
PROVIDERS: PCP Family Medicine; Visit Provider Family Medicine
DX: E11.22 Type 2 diabetes mellitus with diabetic chronic kidney disease (principal); N18.9 Chronic kidney disease, unspecified
CPT/HCPCS: 36415; 80053; 80061; 82043; 82570; 84443; 85027

== ENCOUNTER → 2023-09-20 | Outpatient (CLI) | payer MEDICAID, SELFPAY ==
[2023-09-20 09:14] LABS: Bacteria 0 SEEN /hpf (None Seen); Mucous, Urine 0 SEEN /hpf (<or=2+); White Blood Cells 0 SEEN /hpf (0-5)
[2023-09-20 09:58] LABS: Absolute Lymphocyte Count 0.87 X10^3/uL (0.83-4.51); Absolute Neutrophil Count 7.2 X10^3/uL (2.0-7.7); Basophil# 0.06 X10^3/uL; Basophil% 0.7 % (0-1); Eosinophil# 0.07 X10^3/uL; Eosinophils% 0.8 % (0-5); Hematocrit 39.7 % (40-54); Lymphocyte # 0.87 X10^3/ul (0.83-4.51); Lymphocyte % 9.9 % (19-41); Mean Corp Hgb Conc 32.7 g/dL (32-36); Mean Corpuscular Hgb 29.3 pg (27.0-32.0); Mean Corpuscular Volume 89.4 fL (80-94); Mean Platelet Vol. 10.6 fl (6.2-12.0); Monocyte# 0.56 X10^3/uL; Monocyte% 6.4 % (0-10); NRBC Flagged by Analyzer 0 % (0-5); Neutrophil # 7.18 X10^3/uL (2.7-7.7); Neutrophil % 81.5 % (47-70); Platelet Count 252 K/mm3 (150-450); RBC Distribution Width CV 15.2 % (11.6-14.6); Red Blood Count 4.44 M/mm3 (4.6-6.2); White Blood Count 8.8 K/mm3 (4.4-11.0)
[2023-09-20 10:02] LABS: Color, Urine Yellow (Yellow); Glucose, Dipstick Normal (Normal); Ketone-Dipstick 5 mg/dl (Negative); Leukocyte Esterase-Dipstick 25 /ul (Negative); Nitrite-Dipstick Positive (Negative); Occult Blood-Urine 10 /ul (Negative); Protein-Dipstick 500 mg/dl (Negative); Specific Gravity, Urine 1.025 (1.002-1.030); Urine Bilirubin Dipstick Negative (Negative); Urine Clarity Clear (Clear); Urine Urobilinogen 1 mg/dl (Normal)
[2023-09-20 10:13] LABS: Red Blood Cells-Urine 0-5 SEEN /hpf (0-5); Squamous Epithelial Cells - UA 0-5 SEEN /hpf (0-5)
[2023-09-20 10:18] LABS: Hemoglobin A1c 7.9 % (3.8-5.6)
[2023-09-20 10:24] LABS: ALB/GLOB Ratio 0.6 RATIO (0.9-2.4); AST(SGOT) 13 U/L (15-37); Alanine Aminotransfer ALT/SGPT 16 U/L (16-61); Albumin, Serum 2.7 g/dL (3.2-5.0); Alkaline Phosphatase 96 U/L (45-117); Anion Gap 7 (5-15); BUN 15 mg/dL (7-18); BUN/Creat Ratio 14.4 RATIO (10-20); Calcium,Total 8.6 mg/dL (8.5-10.1); Chloride 109 mmol/L (98-107); Creatinine, Serum 1.04 mg/dL (0.70-1.30); EST Glomerular Filtration Rate 78 mL/min (>60); Est Glom Filt Rate - Afr Amer 95 mL/min (>60); Globulin 4.2 g/dL (2.2-4.2); Glucose 144 mg/dL (74-106); PSA,Total - Annual Screen 0.34 ng/mL (0.00-4.00); Potassium 4.4 mmol/L (3.5-5.1); Prealbumin 22.9 mg/dL (20.0-40.0); Protein, Total 6.9 g/dL (6.4-8.2); Sodium Level 138 mmol/L (136-145)
[2023-09-20 10:30] LABS: Amphetamine Urine VISTA NEGATIVE (<1000 ng/mL); Barbiturate Urine VISTA NEGATIVE (< 200 ng/mL); Benzodiazepine Urine VISTA NEGATIVE (< 200 ng/mL); Cocaine Urine VISTA NEGATIVE (< 300 ng/mL); Ecstacy Urine VISTA NEGATIVE (< 500 ng/mL); Methadone Urine VISTA POSITIVE (< 300 ng/mL); PCP Urine VISTA NEGATIVE (< 25 ng/mL); THC Urine VISTA POSITIVE (< 50 ng/mL); Vista UDS pH Range 5
== END | disposition home or self-care (01) ==
PROVIDERS: PCP Family Medicine; Visit Provider Family Medicine
DX: E11.22 Type 2 diabetes mellitus with diabetic chronic kidney disease (principal); L98.429 Non-pressure chronic ulcer of back with unspecified severity; N18.2 Chronic kidney disease, stage 2 (mild); G89.4 Chronic pain syndrome; M54.10 Radiculopathy, site unspecified; Z12.5 Encounter for screening for malignant neoplasm of prostate
CPT/HCPCS: 84153; 36415; 80053; 80307; 81001; 82043; 82570; 83036; 84134; 85025; 87086; 87088; G0103

== ENCOUNTER → 2024-06-10 | Outpatient (CLI) | payer MEDICAID, SELFPAY ==
[2024-06-10 15:11] LABS: Absolute Lymphocyte Count 0.89 X10^3/uL (0.83-4.51); Absolute Neutrophil Count 4.4 X10^3/uL (2.0-7.7); Basophil# 0.04 X10^3/uL; Basophil% 0.7 % (0-1); Eosinophil# 0.05 X10^3/uL; Eosinophils% 0.8 % (0-5); Hematocrit 38.9 % (40-54); Hemoglobin 12.9 g/dL (13.0-16.5); Lymphocyte # 0.89 X10^3/ul (0.83-4.51); Lymphocyte % 15.1 % (19-41); Mean Corp Hgb Conc 33.2 g/dL (32-36); Mean Corpuscular Hgb 30.8 pg (27.0-32.0); Mean Corpuscular Volume 92.8 fL (80-94); Mean Platelet Vol. 11.1 fl (6.2-12.0); Monocyte# 0.48 X10^3/uL; Monocyte% 8.1 % (0-10); NRBC Flagged by Analyzer 0 % (0-5); Neutrophil # 4.42 X10^3/uL (2.7-7.7); Neutrophil % 74.8 % (47-70); Platelet Count 214 K/mm3 (150-450); RBC Distribution Width CV 13.5 % (11.6-14.6); RBC Distribution Width SD 45.8 fl (35.1-43.9); Red Blood Count 4.19 M/mm3 (4.6-6.2); White Blood Count 5.9 K/mm3 (4.4-11.0)
[2024-06-10 15:25] LABS: Vitamin B12 347 pg/mL (211-911)
[2024-06-10 15:54] LABS: ALB/GLOB Ratio 0.7 RATIO (0.9-2.4); AST(SGOT) 20 U/L (15-37); Alanine Aminotransfer ALT/SGPT 13 U/L (16-61); Albumin, Serum 2.7 g/dL (3.2-5.0); Alkaline Phosphatase 87 U/L (45-117); Anion Gap 4 (5-15); BUN 10 mg/dL (7-18); BUN/Creat Ratio 10.2 RATIO (10-20); Calcium,Total 8.8 mg/dL (8.5-10.1); Chloride 105 mmol/L (98-107); Creatinine, Serum 0.98 mg/dL (0.70-1.30); EST Glomerular Filtration Rate 84 mL/min (>60); Est Glom Filt Rate - Afr Amer 101 mL/min (>60); Glucose 108 mg/dL (74-106); Protein, Total 6.7 g/dL (6.4-8.2); Sodium Level 137 mmol/L (136-145)
== END | disposition home or self-care (01) ==
PROVIDERS: PCP Family Medicine; Referring Provider Family Medicine; Visit Provider Family Medicine
DX: E11.22 Type 2 diabetes mellitus with diabetic chronic kidney disease (principal); N18.2 Chronic kidney disease, stage 2 (mild); E53.8 Deficiency of other specified B group vitamins; M53.3 Sacrococcygeal disorders, not elsewhere classified
CPT/HCPCS: 36415; 80053; 82607; 82746; 85025; 86140